=== PATIENT | female | born 1975 | race Caucasian/White ===

== ENCOUNTER 2019-01-31 13:12 | Emergency (ER) | payer MEDICAID, SELFPAY ==
[2019-01-31 13:13] VITALS: BP 126/79; PULSE 75; RESP 17; TEMP 36.2; O2SAT 100; BMI 18.8
[2019-01-31] MEDS: Fluorescein 1 MG STRIP 1 STRIP LEFT EYE (13:57)
[2019-01-31] MEDS: Tetracaine 0.5% Ophthalmic Bottle 1 DRP LEFT EYE (13:58)
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
== END 2019-01-31 14:45 | disposition home or self-care (01) ==
LOC: ED 14:28
PROVIDERS: Emergency Provider Emergency Medicine
DX: S05.02XA Injury of conjunctiva and corneal abrasion without foreign body, left eye, initial encounter (principal); W50.0XXA Accidental hit or strike by another person, initial encounter; Y93.9 Activity, unspecified; Y92.9 Unspecified place or not applicable; Y99.9 Unspecified external cause status
CPT/HCPCS: 99284